=== PATIENT | female | born 1975 | race Caucasian/White ===

== ENCOUNTER 2017-07-29 20:16 | Emergency (ER) | payer OTHER ==
[~2017-07-29] VITALS: Ht 162.6 cm; Wt 63.5 kg
[2017-07-29] MEDS ORDERED: TRAMADOL 50 MG50 MG PO (21:11)
[2017-07-29] MEDS ORDERED: NAPROSYN500 MG PO (21:11)
[2017-07-29] MEDS ORDERED: NORFLEX100 MG PO (21:11)
== END 2017-07-29 21:36 | disposition home or self-care (01) ==
LOC: ER 20:16
DX: G89.29 Other chronic pain (principal); M54.6 Pain in thoracic spine; M62.830 Muscle spasm of back

== ENCOUNTER 2018-03-30 16:14 | Emergency (ER) | payer BC, OTHER ==
[~2018-03-30] VITALS: Ht 165.1 cm; Wt 59.0 kg
--- NOTE | ~2018-03-30 | EKG ---
[place] [address] [facility] [place] [address] ELECTROCARDIOGRAM REPORT Name: RICH ANDRADE Room #: REG DAVID Mills#: [id number] Admission: 03/30/18 Attend Phys: Discharge: Date of : 77 Report #: [id number] THIS REPORT FOR: //name// [facility] ED Test Date: 2018-03-30 Test Time: 16:42:30 Pat Name: RICH ANDRADE Department: Room: Gender: F [employer]: MONIK : 1975 Requested By: Saleem Bosch Order Number: [id number] MD: Jonathan Rajput Measurements Intervals [place] Rate: 77 P: 44 MI: 144 QRS: 71 QRSD: 71 T: 55 QT: 342 QTc: 387 Interpretive Statements Sinus rhythm Normal tracing No previous ECG available for comparison Electronically Signed On 03-30-2018 17:20:11 CDT by Jonathan Rajput [email or web address] <ELECTRONICALLY SIGNED> By: Jonathan Rajput MD, [facility] 03/30/18 1720 1642 1642 Jonathan Rajput MD, FACC /EPI
[~2018-03-30 16:14] MED LIST: NAPROSYN500 MG PO; NORFLEX100 MG PO; TRAMADOL 50 MG50 MG PO
[2018-03-30 16:43] LABS: URINE BILIRUBIN NEGATIVE (Negative); URINE BLOOD NEGATIVE (Negative); URINE CLARITY CLEAR; URINE COLOR YELLOW; URINE GLUCOSE-RANDOM* NEGATIVE (Negative); URINE KETONES NEGATIVE (Negative); URINE LEUKOCYTES-REFLEX NEGATIVE (Negative); URINE NITRITE-REFLEX NEGATIVE (Negative); URINE PROTEIN (DIPSTICK) NEGATIVE (Negative); URINE UROBILINOGEN 0.2 E.U./dl (0.2-1.0)
[2018-03-30 17:39] LABS: ABSOLUTE NEUTROPHILS 7.4 thou/uL (1.4-8.2); BASOPHILS 0.4 % (0.0-2.0); EOSINOPHILS 0.6 % (0.0-3.0); HEMATOCRIT 43.6 % (37.0-47.0); HEMOGLOBIN 15.2 gm/dL (12.0-15.0); LYMPHOCYTES 23.1 % (24.0-44.0); MCH 32.2 pg (26.0-34.0); MCHC 34.9 g/dL (28.0-37.0); MCV 92.3 fL (80.0-100.0); MONOCYTES 5.3 % (1.0-8.0); PLATELET COUNT 385 thou/uL (150-400); POLYS 70.6 % (36.0-66.0); RBC 4.73 mil/uL (4.20-5.00); RDW 12.7 % (10.5-14.5); WBC 10.5 thou/uL (4.0-11.0)
[2018-03-30 17:46] LABS: ANION GAP 8 mmol/L (7-16); BUN 7 mg/dL (7-18); CALCIUM 9.1 mg/dL (8.5-10.1); CHLORIDE 105 mmol/L (98-107); CO2 26 mmol/L (21-32); CREATININE 0.9 mg/dL (0.6-1.0); GLUCOSE 113 mg/dL (74-106); POTASSIUM 3.7 mmol/L (3.5-5.1); SODIUM 139 mmol/L (136-145)
[2018-03-30 17:55] LABS: TROPONIN-I <0.06 ng/mL (<0.06)
[2018-03-30] MEDS ORDERED: PROMETHAZINE-C473 ML PER TUBE (18:22)
[2018-03-30 18:38] VITALS: BP 98/51
== END 2018-03-30 18:39 | disposition home or self-care (01) ==
LOC: ER 16:14
PROVIDERS: Physician Assistant
DX: I10 Essential (primary) hypertension (principal); R07.9 Chest pain, unspecified; R05 Cough; G89.29 Other chronic pain

== ENCOUNTER 2018-06-29 12:05 | Emergency (ER) | payer BC, OTHER ==
[~2018-06-29] VITALS: Ht 165.1 cm; Wt 59.0 kg
[~2018-06-29 12:05] MED LIST changes: +PROMETHAZINE-C473 ML PER TUBE
[2018-06-29] MEDS ORDERED: MOBIC7.5 MG PO (13:44)
[2018-06-29] MEDS ORDERED: NORFLEX100 MG PO (13:44)
[2018-06-29 13:52] VITALS: BP 142/65
== END 2018-06-29 13:52 | disposition home or self-care (01) ==
LOC: ER 12:05
DX: S29.012A Strain of muscle and tendon of back wall of thorax, initial encounter (principal); F17.200 Nicotine dependence, unspecified, uncomplicated; G89.29 Other chronic pain; M54.9 Dorsalgia, unspecified; Z98.890 Other specified postprocedural states; Z90.49 Acquired absence of other specified parts of digestive tract; Z90.89 Acquired absence of other organs; X50.1XXA Overexertion from prolonged static or awkward postures, initial encounter; Y92.89 Other specified places as the place of occurrence of the external cause; Y99.0 Civilian activity done for income or pay; Y99.8 Other external cause status